=== PATIENT | female | born 1995 | race Two or more races ===

== ENCOUNTER 2023-02-24 15:56 | Emergency (ER) | payer OTHER ==
[~2023-02-24] VITALS: Ht 157.5 cm; Wt 69.4 kg
[2023-02-24] MEDS ORDERED: TRAMADOL HCL50 MG PO (23:53)
== END 2023-02-25 00:09 | disposition home or self-care (01) ==
LOC: ER 15:56
PROVIDERS: General Practice
DX: R10.31 Right lower quadrant pain (principal); N83.209 Unspecified ovarian cyst, unspecified side

== ENCOUNTER 2024-02-25 12:16 | Outpatient (CLI) | payer OTHER ==
[~2024-02-25 12:16] MED LIST: TRAMADOL HCL50 MG PO
== END 2024-02-25 12:46 | disposition home or self-care (01) ==
LOC: NST 12:16
PROVIDERS: ATTEND Obstetrics & Gynecology Maternal & Fetal Medicine
DX: Z34.83 Encounter for supervision of other normal pregnancy, third trimester (principal)

== ENCOUNTER 2024-03-11 10:02 | Outpatient (CLI) | payer OTHER ==
[2024-03-11 11:45] VITALS: BP 118/73
[2024-03-11] MEDS ORDERED: RINGERS SOLUTION,LACTATED 1,000 ML IV SCH (12:30)
[2024-03-11] MEDS ORDERED: PRENATAL TABLE1 EAC1 PO (14:03)
[2024-03-11] MEDS ORDERED: ZYRTEC10 M3 PO (14:03)
[2024-03-11] MEDS ORDERED: VITAMIN C500 M1 PO (14:04)
[2024-03-11 15:28] VITALS: BP 113/69
[2024-03-11 15:30] VITALS: BP 113/69
[2024-03-11 20:11] VITALS: BP 89/47
[2024-03-11 23:19] VITALS: BP 92/58
[2024-03-12 03:17] VITALS: BP 102/65
[2024-03-12 06:38] VITALS: BP 103/63; O2SAT 98
[2024-03-12 10:20] VITALS: BP 103/63
== END 2024-03-12 10:46 | disposition home or self-care (01) ==
LOC: OBS/DEL 10:02 → NST 10:02 → OBS/DEL 11:47
PROVIDERS: ATTEND Obstetrics & Gynecology Gynecology
DX: O99.891 Other specified diseases and conditions complicating pregnancy (principal); Z3A.30 30 weeks gestation of pregnancy

== ENCOUNTER 2024-03-15 10:13 | Outpatient (CLI) | payer OTHER ==
[~2024-03-15 10:13] MED LIST changes: +PRENATAL TABLE1 EAC1 PO; +VITAMIN C500 M1 PO; +ZYRTEC10 M3 PO
== END 2024-03-15 11:41 | disposition home or self-care (01) ==
LOC: NST 10:13
PROVIDERS: ATTEND Obstetrics & Gynecology Gynecology
DX: Z34.83 Encounter for supervision of other normal pregnancy, third trimester (principal)

== ENCOUNTER 2024-03-25 11:53 | Outpatient (CLI) | payer OTHER | END 2024-03-25 12:32 | disposition home or self-care (01) | LOC: NST 11:53 | PROVIDERS: ATTEND Obstetrics & Gynecology Gynecology | DX: Z34.83 Encounter for supervision of other normal pregnancy, third trimester (principal) ==

== ENCOUNTER 2024-05-01 13:07 | Inpatient (IN) | payer OTHER ==
[~2024-05-01] VITALS: Ht 157.5 cm; Wt 2.7 kg
[2024-05-01 11:32] VITALS: BP 103/62; O2SAT 99
[2024-05-01] MEDS ORDERED: PRENATAL TABLE1 EAC1 (13:14)
[2024-05-01] MEDS ORDERED: RINGERS SOLUTION,LACTATED 1,000 ML IV SCH (13:15)
[2024-05-01 13:39] LABS: URINE APPEARANCE Clear; URINE BILIRRUBIN Negative (NEGATIVE); URINE BLOOD Moderate; URINE COLOR Yellow; URINE GLUCOSE Negative (NEGATIVE); URINE KETONE Negative (NEGATIVE); URINE LEUKOCYTE Trace; URINE NITRATE Negative; URINE PROTEIN Negative (NEGATIVE); URINE UROBILINOGEN 0.2 E.U./dl
[2024-05-01 13:43] LABS: URINE EPITHELIAL CELLS 60.7 uL (0.0-38.8); URINE RBC 70.9 uL (0.0-20.8); URINE WBC 55.9 uL (0.0-23.2)
[2024-05-01 13:49] LABS: URINE CAST 0.15 uL (0.0-1.40)
[2024-05-01 13:50] LABS: HEMATOCRIT 38.1 % (36.0-45.00); HEMOGLOBIN 12.9 g/dL (12.0-15.00); MEAN CELL VOLUME 90.7 fL (80.00-100.00); MEAN CORPUSCULAR HEMOGLOBIN 30.8 pg (27.00-32.0); MEAN CORPUSCULAR HGB CONC 33.9 g/dl (32.0-36.0); PLATELET COUNT 185 K/uL (150-450); RED CELL DISTRIBUTION WIDTH 14.2 % (11.5-14.5)
[2024-05-01 13:58] LABS: INR < 0.93; PARTIAL THROMBOPLASTIN TIME 24.2 SECONDS (22.0-34.0); PROTHROMBIN TIME 9.9 SECONDS (9.0-11.5)
[2024-05-01 14:02] LABS: ALBUMIN 2.8 gm/dL (3.4-5.0); BILIRUBIN TOTAL 0.31 mg/dL (0.3-1.2); CALCIUM 9.2 mg/dL (8.5-10.1); CREATININE SERUM 0.53 mg/dL (0.55-1.02); GFR 135.45; GLOBULINA 3.4 G/DL (2.4-3.5); POTASSIUM 4.42 mEq/L (3.5-5.1); TOTAL PROTEIN 6.2 gm/dL (6.4-8.2)
[2024-05-01] MEDS ORDERED: OXYTOCIN 20 UNITS/500ML RL PIGGYBAG IV SCH (14:45)
[2024-05-01 15:23] VITALS: BP 128/70
[2024-05-01] MEDS ORDERED: MORPHINE SULFATE 4 MG/ML VIAL IV ONE ×3 (18:20→23:15)
[2024-05-01] MEDS ORDERED: CEFOXITIN SODIUM 2,000 MG VIAL IV STA (19:59)
[2024-05-01] MEDS ORDERED: CITRIC ACID/SODIUM CITRATE 30 ML BLIST.PACK PO STA (20:00)
[2024-05-01] MEDS ORDERED: METHYLERGONOVINE MALEATE 0.2 MG/ML AMPUL IV ONE (22:30)
[2024-05-01] MEDS ORDERED: ERYTHROMYCIN BASE OPHT 1GM EACH TUBE OP ONE (22:30)
[2024-05-01] MEDS ORDERED: OXYTOCIN 10 UNITS/ML VIAL IV ONE (22:30)
[2024-05-01] MEDS ORDERED: OXYTOCIN 1,000 ML IV ONE (23:00)
[2024-05-01] MEDS ORDERED: KETOROLAC TROMETHAMINE 30 MG VIAL IM ONE (23:15)
[2024-05-01] MEDS ORDERED: PROMETHAZINE HCL 25 MG/ML AMPUL IM PRN (23:15)
[2024-05-01] MEDS ORDERED: MEPERIDINE HCL/PF 50 MG/ML VIAL IM PRN (23:15)
[2024-05-02] MEDS ORDERED: KETOROLAC TROMETHAMINE 10 MG TABLET PO SCH
[2024-05-02] MEDS ORDERED: PROMETHAZINE HCL 25 MG/ML AMPUL IM ONE (00:15)
[2024-05-02] MEDS ORDERED: PROMETHAZINE HCL 25 MG/ML AMPUL IV ONE (00:15)
[2024-05-02] MEDS ORDERED: MEPERIDINE HCL 50 MG/ML AMPUL IV ONE (00:15)
[2024-05-02] MEDS ORDERED: MEPERIDINE HCL 50 MG/ML AMPUL IM ONE (00:15)
[2024-05-02] MEDS ORDERED: KETOROLAC TROMETHAMINE 30 MG VIAL IM ONE (02:00)
[2024-05-02 02:34] LABS: HEMATOCRIT 36.5 % (36.0-45.00); HEMOGLOBIN 12.6 g/dL (12.0-15.00); MEAN CELL VOLUME 89.1 fL (80.00-100.00); MEAN CORPUSCULAR HEMOGLOBIN 30.7 pg (27.00-32.0); MEAN CORPUSCULAR HGB CONC 34.4 g/dl (32.0-36.0); PLATELET COUNT 179 K/uL (150-450); RED CELL DISTRIBUTION WIDTH 14.6 % (11.5-14.5)
[2024-05-02 02:56] VITALS: BP 117/71
[2024-05-02] MEDS ORDERED: SIMETHICONE 125 MG CAPSULE PO SCH (05:00)
[2024-05-02] MEDS ORDERED: CEFAZOLIN SODIUM 1,000 MG VIAL IV SCH (05:00)
[2024-05-02] MEDS ORDERED: MEPERIDINE HCL/PF 25 MG,MEPERIDINE HCL/PF 50 MG IM PRN (07:45)
[2024-05-02 08:00] VITALS: BP 131/81
[2024-05-02 08:00] LABS: HEMATOCRIT 34.6 % (36.0-45.00); HEMOGLOBIN 11.8 g/dL (12.0-15.00); MEAN CORPUSCULAR HEMOGLOBIN 30.7 pg (27.00-32.0); MEAN CORPUSCULAR HGB CONC 34.1 g/dl (32.0-36.0); PLATELET COUNT 167 K/uL (150-450); RED BLOOD COUNT 3.84 M/uL (4.00-6.00)
[2024-05-02] MEDS ORDERED: OxyCODONE HCL/APAP UD (PERCOCET) PO ONE (10:30)
[2024-05-02] MEDS ORDERED: OxyCODONE HCL/APAP UD (PERCOCET) PO SCH (13:00)
[2024-05-02 16:00] VITALS: BP 122/85
[2024-05-02 23:38] VITALS: BP 106/61
[2024-05-03 07:33] VITALS: BP 119/72
[2024-05-03] MEDS ORDERED: KETOROLAC TROMETHAMINE 10 MG TABLET PO SCH (07:33)
[2024-05-03 13:13] VITALS: BP 118/73
[2024-05-03 16:57] VITALS: BP 115/67
[2024-05-04 01:12] VITALS: BP 122/79
[2024-05-04 07:54] VITALS: BP 128/85
== END 2024-05-04 11:14 | disposition home or self-care (01) | DRG 788 ==
LOC: LDR 13:07 → OB/GYN 22:22
PROVIDERS: Obstetrics & Gynecology Maternal & Fetal Medicine; ADMIT Obstetrics & Gynecology Gynecology; ATTEND Obstetrics & Gynecology Gynecology
PROC: 4A1HXCZ Monitoring of Products of Conception, Cardiac Rate, External Approach (ICD-10-PCS; 2024-05-01)
PROC: 10D00Z1 Extraction of Products of Conception, Low, Open Approach (ICD-10-PCS; principal; 2024-05-01 19:00)
DX: O36.8130 Decreased fetal movements, third trimester, not applicable or unspecified (principal); O62.0 Primary inadequate contractions; Z3A.37 37 weeks gestation of pregnancy; Z37.0 Single live birth; Z20.822 Contact with and (suspected) exposure to COVID-19